=== PATIENT | male | born 1980 | race Caucasian/White ===

== ENCOUNTER 2025-08-07 16:03 | Outpatient (OUT) | payer OTHER, SELFPAY ==
[2025-08-07 16:21] LABS: Hematocrit 45.0 % (42.0-54.0); Hemoglobin 16.1 g/dL (14.0-18.0); Immature Granulocytes Abs Auto 0.01 10^3/uL (0.00-0.03); Immature Granulocytes Pct Auto 0.1 % (0.0-0.5); Lymphocytes Absolute Auto 2.3 10^3/uL (1.2-3.8); Mean Corpuscular HGB Conc 35.8 g/dL (29.9-35.2); Mean Corpuscular Hemoglobin 29.9 pg (25.9-34.0); Mean Corpuscular Volume 83.5 fL (80.0-94.0); Platelet Count 226 10^3/uL (150-450); Red Blood Count 5.39 10^6/uL (4.70-6.10); White Blood Count 7.0 10^3/uL (4.0-11.0)
[2025-08-07 17:02] LABS: Cholesterol 148 mg/dL (<=200); HDL Cholesterol 42 mg/dL (40-60); Triglycerides 88 mg/dL (<=150); VLDL CHOLESTEROL 17.6 mg/dL
== END 2025-08-07 16:04 | disposition home or self-care (01) ==
PROVIDERS: Family Provider Family Medicine; PCP Family Medicine; Visit Provider Family Medicine
DX: Z00.00 Encounter for general adult medical examination without abnormal findings (principal); R35.1 Nocturia; I10 Essential (primary) hypertension; E78.00 Pure hypercholesterolemia, unspecified
CPT/HCPCS: 36415; 80061; 85025; G0103